=== PATIENT | female | born 1960 | race Two or more races ===

== ENCOUNTER 2024-08-15 09:33 | Inpatient (IN) | payer MEDICAID, OTHER ==
[~2024-08-15] VITALS: Ht 160 cm; Wt 77.3 kg
--- NOTE | 2024-08-15 10:28 | ED.PDOC ---
GI ASSESSMENT HPI Comments 64Y F with PMHx bariatric surgery and hernia repair presents to ED for chief complaint abd pain with nausea and shakiness. Pt had bariatric sleeve surgery 9 months ago at [facility]. Now, pt has noticed a golf-sized mass on the left side of the abdomen and is concerned about having another hernia. Pt drank a hot tea and used hot packs this morning but did not feel relief. Chief Complaint: Abdominal Pain Time Seen by MD: 09:56 Reviewed Notes: Medications, Allergies Allergies: Coded Allergies: NO KNOWN ALLERGIES (Unverified , 08/15/24) Information Source: Patient Mode of Arrival: Ambulatory Timing: Days Duration: Since onset Quality: Sharp Vomitus: Watery Stool: Normal Severity: Moderate Recent: Recent Surgery Recent Hx of: Abdominal Operations Pain Location: LUQ, LLQ Modifying Factors: Nothing Associated sign and symptoms: Nausea, Abdominal Pain, Other Past Medical History PAST MEDICAL HISTORY: DM, HTN, Thyroid Surgical History: , Hernia Repair Surgical History (Other): Bariatric sleeve DISPLAY ARTIST History: No Pertinent DISPLAY ARTIST History Family History Family History: Unknown Social History Smoker: Non-Smoker Alcohol: Denies ETOH Use Drugs: Denies Drug Use Lives In: Home Constitutional: reports: others (shaky); denies: chills, diaphoresis, fatigue, fever, malaise, sweats, weakness EENTM: denies: blurred vision, double vision, ear bleeding, ear discharge, ear drainage, ear pain, ear ringing, eye pain, eye redness, hearing loss, mouth pain, mouth swelling, nasal discharge, nose bleeding, nose congestion, nose pain, photophobia, tearing, throat pain, throat swelling, voice changes, others Respiratory: denies: cough, hemoptysis, orthopnea, SOB at rest, shortness of breath, SOB with excertion, stridor, wheezing, others Cardiovascular: denies: chest pain, dizzy spells, diaphoresis, Dyspnea on exertion, edema, irregular heart beat, left arm pain, lightheadedness, palpitations, PND, syncope, others Gastrointestinal: reports: abdominal pain, nausea; denies: abdomen distended, blood streaked bowels, constipated, diarrhea, dysphagia, difficulty swallowing, hematemesis, melena, poor appetite, poor fluid intake, rectal bleeding, rectal pain, vomiting, others Genitourinary: denies: abnormal vagina bleeding, burning, dyspareunia, dysuria, flank pain, frequency, hematuria, incontinence, pain, , vagina discharge , urgency, others Neurological: denies: dizziness, fainting, headache, left sided numbness, left sided weakness, numbness, paresthesia, pre-existing deficit, right sided numbness, right sided weakness, seizure, speech problems, tingling, tremors, weakness, others Musculoskeletal: denies: back pain, gout, joint pain, joint swelling, muscle pain, muscle stiffness, neck pain, others Integumetry: denies: bruises, change in color, change in hair/nails, dryness, laceration, lesions, lumps, rash, wounds, others Allergic/Immunocompromised: denies: Difficulty Healing, Frequent Infections, Hives, Itching, others Hematologic/Lymphatic: denies: anemia, blood clots, easy bleeding, easy bruising, swollen glands, others Endocrine: denies: excessive hunger, excessive sweating, excessive thirst, excessive urination, flushing, intolerance to cold, intolerance to heat, unexplained weight gain, unexplained weight loss, others Psychiatric: denies: anxiety, bipolar disorder, depression, hopeless, panic di sorder, schizophrenia, sleepless, suicidal, others All Other Systems: Reviewed and Negative Physical Exam General Appearance: Moderate Distress, Normal HEENT: Normal ENT Inspection, Pharynx Normal, TMs Normal Neck: Full Range of Motion, Non-Tender, Normal, Normal Inspection Respiratory: Chest Non-Tender, Lungs Clear, No Accessory Muscle Use, No Respiratory Distress, Normal Breath Sounds Cardiovascular: No Edema, No JVD, No Murmur, No Gallop, Normal Peripheral Pulses, Regular Rate/Rhythm Breast Exam: Deferred Gastrointestinal: No Organomegaly, Non Tender, No Pulsatile Mass, Normal Bowel Sounds, Soft Genitalia: Deferred Pelvic: Deferred Rectal: Deferred Extremities: No calf tenderness, Normal capillary refill, Normal inspection, Normal range of motion, Non-tender, No pedal edema Musculoskeletal : Apperance: Normal Neurologic: Alert, medical operations supervisor II-XII nml as Tested, No Motor Deficits, Normal Affect, Normal Mood, No Sensory Deficits Cerebellar Function: Normal Reflexes: Normal Skin: Dry, Normal Color, Warm Peripheral Pulses: 3+ Radial (R), 3+ Radial (L) Lymphatic: No Adenopathy Was a procedure done? Was a procedure done?: No GI differential Dx Differential Diagnosis: Constipation, Diverticular disease, Esophagitis, Gastritis/PUD, Gastroenteritis, Hernia X-Ray, Labs, Meds, VS Vital Signs Date Time Temp Pulse Resp B/P (MAP) Pulse Ox O2 Delivery O2 Flow Rate FiO2 08/15/24 12:16 93 20 150/80 08/15/24 12:01 75 18 125/63 (83) 98 08/15/24 12:01 75 20 98 Room Air 08/15/24 09:54 98.0 98 20 150/80 (103) 98 Lab Test 08/15/24 10:55 Range/Units White Blood Count 7.7 4.4-10.8 10^3/uL Red Blood Count 4.95 4.0-5.20 10^6/uL Hemoglobin 15.1 12.2-16.2 g/dL Hematocrit 44.7 36.0-46.0 % Mean Corpuscular Volume 90.2 80.0-100.0 fL Mean Corpuscular Hemoglobin 30.6 28.0-32.0 pg Mean Corpuscular Hemoglobin Concent 33.9 32.0-36.0 g/dL Red Cell Distribution Width 14.0 11.8-14.3 % Platelet Count 249 140-450 10^3/uL Mean Platelet Volume 8.3 6.9-10.8 fL Neutrophils (%) (Auto) 75.2 37.0-80.0 % Lymphocytes (%) (Auto) 17.5 10.0-50.0 % Monocytes (%) (Auto) 4.8 0.0-12.0 % Eosinophils (%) (Auto) 1.4 0.0-7.0 % Basophils (%) (Auto) 1.1 0.0-2.0 % Neutrophils # (Auto) 5.8 1.6-8.6 10 ^3/uL Lymphocytes # (Auto) 1.3 0.4-5.4 10 ^3/uL Monocytes # (Auto) 0.4 0-1.3 10 ^3/uL Eosinophils # (Auto) 0.1 0-0.8 10 ^3/uL Basophils # (Auto) 0.1 0-0.2 10 ^3/uL Nucleated Red Blood Cells 0.1 % Sodium Level 142 136-145 mmol/L Potassium Level 4.3 3.5-5.1 mmol/L Chloride Level 107 98-107 mmol/L Carbon Dioxide Level 27 20-31 mmol/L Anion Gap 8 5-15 Blood Urea Nitrogen 13 9-23 mg/dL Creatinine 0.65 0.550-1.02 mg/dL Glomerular Filtration Rate Calc 99 >90 mL/min BUN/Creatinine Ratio 20.0 10.0-20.0 Serum Glucose 116 H 74-106 mg/dL Calcium Level 10.0 8.7-10.4 mg/dL Current Medications Medications (Trade) Dose Ordered Sig/Nicolas Route Start Time Stop Time Status Last Admin Morphine Sulfate 4 mg ONCE ONCE IV 08/15/24 11:30 08/15/24 11:31 DC 08/15/24 12:16 Ondansetron HCl (Zofran) 4 mg ONCE ONCE IV 08/15/24 11:30 08/15/24 11:31 DC 08/15/24 12:15 [place] [id number] Ph: [phone] DIAGNOSTIC IMAGING Diagnostic Imaging Report : [id number] Signed PATIENT: MARIE AGUERO ACCT: [id number] UNIT: [id number] : 1960 LOC: ER ROOM / BED: / AGE / SEX: 64 / F ADM STATUS: REG ER SERVICE 1033 ORDERING PHYSICIAN: JASON PAULINO MD PROCEDURE(s): ABPL - CT AB PEL WO CON-NO ORAL OR IV REASON: sbo ORDER NUMBER(s): [id number], ACCESSION NUMBER(s): [id number] Exam: CT CT AB PEL WO CON-NO ORAL OR IV History: sbo Comparison Study: None available at time of dictation. Technique: Multidetector spiral CT of the abdomen and pelvis was performed from lung bases to pubic symphysis. Imaging was performed without intravenous contrast. Coronal and sagittal multiplanar reformats were obtained from the axial data set by the technologist. Radiation Dose : 1. Abdomen/Pelvis: CTDIvol 11.4 mGy, DLP 651.1 mGy*cm. Findings: Evaluation of vasculature and solid organs is limited due to lack of intravenous contrast use. Lung Bases: Lung bases are clear. Visualized portions of the heart and pericardium are unremarkable. Liver: The liver is normal in size. No focal lesions. Gallbladder and Biliary Tree: The gallbladder is unremarkable No intrahepatic or extrahepatic biliary ductal dilatation. Spleen: Unremarkable Pancreas: The pancreas is grossly unremarkable. Adrenal Glands: Unremarkable Kidneys: Kidneys are unremarkable without calculi or hydronephrosis. There is a right renal cyst. GI tract: Postsurgical changes in the stomach. Focally dilated bowel loop within an umbilical hernia with decompression of the bowel loop exiting the umbilical hernia and slight dilatation of the bowel loops upstream of the hernia. The colon is unremarkable. The appendix is visualized and is normal. Peritoneum/mesentery/retroperitoneum. No evidence of free intraperitoneal air. No ascites. No evidence of suspicious lymphadenopathy. Abdominal Wall: Umbilical hernias described. Vasculature: The visualized abdominal aorta is normal in size and caliber. Evaluation of abdominal and pelvic vessels is limited due to lack of intravenous contrast. Urinary Bladder: Grossly unremarkable for degree of distention. Pelvic Organs: Unremarkable Musculoskeletal: No aggressive focal bony lesions, acute fractures or dislocation. IMPRESSION: 1. Umbilical hernia containing small bowel loops findings which could represent a partial bowel obstruction. ATED BY: JERMAINE ZACARIAS MD DICTATED DATE/TIME: 08/15/24 105 SIGNED BY: JERMAINE ZACARIAS MD SIGNED DATE/TIME: 08/15/24 105 CC: Patient alert. Complaining of abdominal pain. On examination she does have hernia on the left quadrant. Vitals stable. Answering all questions. Abdomen is soft. She does not take any medication. Had gastric sleeve a [facility] early part of the year. Reviewed her history. CT scan of the abdomen reviewed does show hernia with small bowel obstruction. Placed a NG tube. Explained to the patient. Time of 1ST Reevaluation: 10:26 Reevaluation 1ST: Unchanged Patient Education/Counseling: Diagnosis, Treatment Family Education/Counseling: No Family Present Additional Information The following tests were ordered, and results were reviewed by me: CBC, BMP, UA, CT abd/pelvis WO contrast I reviewed and agreed with the following test results read by other providers: C T abd/pelvis WO contrast I discussed treatment and results with medical personnel. Departure 1 Departure Time of Disposition: 10:48 Impression: Primary Impression: Acute abdominal pain Additional Impression: Small bowel obstruction Disposition: ADMITTED INPATIENT Admit to: Med Surg Condition: Guarded Critical Care Note Critical Care Time?: No Stability Stability form required: No Heart Score Heart Score: Heart Score Response (Comments) Value History N/A 0 EKG N/A 0 Age N/A 0 Risk Factors N/A 0 Troponin N/A 0 Total 0 I personally scribed for JASON PAULINO MD ([email or web address]) on 08/15/24 at 10:28. Electronically submitted by Allison Morales ([employer]). I personally scribed for JASON PAULINO MD ([email or web address]) on 08/15/24 at 10:36. Electronically submitted by Allison Morales ([employer]). I personally scribed for JASON PAULINO MD ([email or web address]) on 08/15/24 at 11:24. Electronically submitted by Allison Morales ([employer]). I personally scribed for JASON PAULINO MD ([email or web address]) on 08/15/24 at 14:03. Electronically submitted by Allison Morlaes ([employer]). JASON PAULINO MD Aug 15, 2024 10:28
--- NOTE | 2024-08-15 11:02 | DVH ---
Exam: CT CT AB PEL WO CON-NO ORAL OR IV History: sbo Comparison Study: None available at time of dictation. Technique: Multidetector spiral CT of the abdomen and pelvis was performed from lung bases to pubic s ymphysis. Imaging was performed without intravenous contrast. Coronal and sagittal multiplanar refor mats were obtained from the axial data set by the technologist. Radiation Dose : 1. Abdomen/Pelvis: CTDIvol 11.4 mGy, DLP 651.1 mGy*cm. Findings: Evaluation of vasculature and solid organs is limited due to lack of intravenous contrast use. Lung Bases: Lung bases are clear. Visualized portions of the heart and pericardium are unremarkable. Liver: The liver is normal in size. No focal lesions. Gallbladder and Biliary Tree: The gallbladder is unremarkable No intrahepatic or extrahepatic bilia ry ductal dilatation. Spleen: Unremarkable Pancreas: The pancreas is grossly unremarkable. Adrenal Glands: Unremarkable Kidneys: Kidneys are unremarkable without calculi or hydronephrosis. There is a right renal cyst. GI tract: Postsurgical changes in the stomach. Focally dilated bowel loop within an umbilical hernia with decompression of the bowel loop exiting the umbilical hernia and slight dilatation of the bowel loops upstream of the hernia. The colon is unremarkable. The appendix is visualized and is normal. Peritoneum/mesentery/retroperitoneum. No evidence of free intraperitoneal air. No ascites. No evidenc e of suspicious lymphadenopathy. Abdominal Wall: Umbilical hernias described. Vasculature: The visualized abdominal aorta is normal in size and caliber. Evaluation of abdominal a nd pelvic vessels is limited due to lack of intravenous contrast. Urinary Bladder: Grossly unremarkable for degree of distention. Pelvic Organs: Unremarkable Musculoskeletal: No aggressive focal bony lesions, acute fractures or dislocation. IMPRESSION: 1. Umbilical hernia containing small bowel loops findings which could represent a partial bowel obstr uction.
[2024-08-15 11:13] LABS: Basophils # (auto) 0.1 10 ^3/uL (0-0.2); Basophils % (auto) 1.1 % (0.0-2.0); Eosinophils # (auto) 0.1 10 ^3/uL (0-0.8); Eosinophils % (auto) 1.4 % (0.0-7.0); Hematocrit 44.7 % (36.0-46.0); Hemoglobin 15.1 g/dL (12.2-16.2); Lymphocytes # (auto) 1.3 10 ^3/uL (0.4-5.4); Lymphocytes % (auto) 17.5 % (10.0-50.0); Mean Corpuscular Hemoglobin 30.6 pg (28.0-32.0); Mean Corpuscular Hgb Conc. 33.9 g/dL (32.0-36.0); Mean Corpuscular Volume 90.2 fL (80.0-100.0); Monocytes # (auto) 0.4 10 ^3/uL (0-1.3); Monocytes % (auto) 4.8 % (0.0-12.0); Neutrophils # (auto) 5.8 10 ^3/uL (1.6-8.6); Neutrophils % (auto) 75.2 % (37.0-80.0); Nucleated Red Blood Cells % 0.1 %; Platelet Count (auto) 249 10^3/uL (140-450); Red Blood Cells 4.95 10^6/uL (4.0-5.20); White Blood Cell 7.7 10^3/uL (4.4-10.8)
[2024-08-15 11:15] LABS: Chloride 107 mmol/L (98-107); Potassium 4.3 mmol/L (3.5-5.1); Sodium 142 mmol/L (136-145)
[2024-08-15 11:16] LABS: Anion Gap 8 (5-15); Carbon Dioxide 27 mmol/L (20-31)
[2024-08-15 11:21] LABS: Blood Urea Nitrogen 13 mg/dL (9-23)
[2024-08-15 11:24] LABS: Glucose 116 mg/dL (74-106)
[2024-08-15] MEDS: ONDANSETRON HCL 4 MG/2 ML VIAL IV ONE (12:15)
[2024-08-15] MEDS: MORPHINE SULFATE 4 MG/ML SYR/VIAL IV ONE (12:16)
--- NOTE | 2024-08-15 12:20 | DVHHP2 ---
History of Present Illness Reason for Visit: Abdominal pain History of Present Illness 64-year-old female past medical history bariatric surgery hernia repair hypertension thyroid disease prediabetic surgical history hernia repair bariatric sleeve chief complaint patient states she has been having abdominal pain that appears it started today sudden onset of pain in her left side of her abdomen with a is a hard lump at. Patient states that was a hernia that she had in the past she had likely repair from it prior but she states today the pain was so severe it made her come to the ER further evaluation and it felt like a sharp stabbing pain she also states she had a feeling of nausea but no vomiting no diarrhea there was no black stools no tearing sensation abdomen no shortness with the breath. Patient denies any fever. When evaluating patient's labs and imaging CBC was unremarkable glucose [address] scan of the abdomen pelvis shows some blurry Hugo hernia we will partial small-bowel obstruction. With these findings we will admit patient for further workup and care and ask for General surgery evaluation we will also place NG tube for now Past Medical History See HPI above Past Surgical History See HPI above Family History Reviewed, non-contributory to the management of this case. Past Social History The patient lives at home, denies smoking, alcohol or illicit drugs abuse. Review of Systems Constitutional: No: Fever, Chills, Sweats, Weakness, Malaise, Other Eyes: No: Pain, Vision change, Conjunctivae inflammation, Eyelid inflammation, Other, Redness ENT: No: Ear pain, Ear discharge, Nose pain, Nose discharge, Nose congestion, Mouth pain, Mouth swelling, Throat pain, Throat swelling, Other Respiratory: No: Cough, Dry, Shortness of breath, SOB with excertion, Wheezing, Hemoptysis, Pleuritic Pain, Sputum, Wheezing, Other Cardiovascular: No: Chest Pain, Palpitations, Orthopnea, Paroxysmal Noc. Dyspnea, Edema, Lt Headedness, Other Gastrointestinal: Nausea, Vomiting, Abdominal Pain; No: Diarrhea, Constipation, Melena, Hematochezia, Other Allergies: Coded Allergies: NO KNOWN ALLERGIES (Unverified , 08/15/24) Exam Vital Signs Vital Signs Date Time Temp Pulse Resp B/P (MAP) Pulse Ox O2 Delivery O2 Flow Rate FiO2 08/15/24 12:01 75 18 125/63 (83) 98 08/15/24 12:01 Room Air 08/15/24 09:54 98.0 General Appearance: Alert, Oriented X3, Cooperative, No acute distress HEENT: Atraumatic, PERRLA, EOMI, Mucous membr. moist/pink Respiratory: Clear to auscultation, Normal air movement Cardiovascular: Regular rate, Normal S1, Normal S2, No murmurs Abdominal: Normal bowel sounds, Soft, No hepatospenomegaly, No masses, Other (Guarding and rebound tenderness left mid quadrant area with bulging under the skin compartments soft) Extremities: No clubbing, No cyanosis, No edema, Normal pulses Skin: No breakdown, No significant lesion Neuro: Normal speech, Strength at 5/5 X4 ext, Normal tone, Sensation intact, Cranial nerves 3-12 NL Psych/Mental Status: Mental status NL, Mood NL Labs/Xrays Labs Test 08/15/24 10:55 Range/Units White Blood Count 7.7 4.4-10.8 10^3/uL Red Blood Count 4.95 4.0-5.20 10^6/uL Hemoglobin 15.1 12.2-16.2 g/dL Hematocrit 44.7 36.0-46.0 % Mean Corpuscular Volume 90.2 80.0-100.0 fL Mean Corpuscular Hemoglobin 30.6 28.0-32.0 pg Mean Corpuscular Hemoglobin Concent 33.9 32.0-36.0 g/dL Red Cell Distribution Width 14.0 11.8-14.3 % Platelet Count 249 140-450 10^3/uL Mean Platelet Volume 8.3 6.9-10.8 fL Neutrophils (%) (Auto) 75.2 37.0-80.0 % Lymphocytes (%) (Auto) 17.5 10.0-50.0 % Monocytes (%) (Auto) 4.8 0.0-12.0 % Eosinophils (%) (Auto) 1.4 0.0-7.0 % Basophils (%) (Auto) 1.1 0.0-2.0 % Neutrophils # (Auto) 5.8 1.6-8.6 10 ^3/uL Lymphocytes # (Auto) 1.3 0.4-5.4 10 ^3/uL Monocytes # (Auto) 0.4 0-1.3 10 ^3/uL Eosinophils # (Auto) 0.1 0-0.8 10 ^3/uL Basophils # (Auto) 0.1 0-0.2 10 ^3/uL Nucleated Red Blood Cells 0.1 % Sodium Level 142 136-145 mmol/L Potassium Level 4.3 3.5-5.1 mmol/L Chloride Level 107 98-107 mmol/L Carbon Dioxide Level 27 20-31 mmol/L Anion Gap 8 5-15 Blood Urea Nitrogen 13 9-23 mg/dL Creatinine 0.65 0.550-1.02 mg/dL Glomerular Filtration Rate Calc 99 >90 mL/min BUN/Creatinine Ratio 20.0 10.0-20.0 Serum Glucose 116 H 74-106 mg/dL Calcium Level 10.0 8.7-10.4 mg/dL Assessment/Plan Assessment/Plan acute umbilical hernia with sbo obstruction found on ct scan N.p.o. for now ordered zosyn ordered IV fluids ordered General surgery consult follow-up recs ordered Protonix ordered Type and screen, ekg ordered Morphine and Zofran small bowel series ordered from er fu results acute leukocytosis likely in setting of sbo and acute dehydration ordered zosyn consider blood cultures if with fever acute dehydration ordered ivf acute on chronic paty ordered urine sodium and crea to check fena monitor for uptrend avoid nephrotoxic drugs ordered ivf chronic problems dm htn hypothyroidism chronic bariatric sleeve fen/ppx npo ivf ng tube protonix scd lovenox plan admit to medicine general surgery referral Plan discussed with: Patient Date of Service: Aug 15, 2024 Billing Provider: LINDA ERVIN DNP Common Visit Codes: [id number] INP/OBS CARE (HIGH) LINDA ERVIN DNP Aug 15, 2024 12:20
[2024-08-15] MEDS ORDERED: DOCUSATE SOD 100 MG CAP PO PRN (13:15)
[2024-08-15] MEDS ORDERED: NITROGLYCERIN 0.4 MG SL TAB SL PRN (13:15)
[2024-08-15] MEDS: PANTOPRAZOLE 40 MG/10 ML VIAL INJ IV ONE (14:48)
[2024-08-15] MEDS: ONDANSETRON HCL 4 MG/2 ML VIAL IV PRN (14:48)
[2024-08-15] MEDS: PIPERACILLIN-TAZOB 3.375GM 100 ML IV ONE (14:49)
[2024-08-15] MEDS: GASTROGRAFIN 120 ML SOL ONE (14:49)
[2024-08-15 15:30] VITALS: BP 157/88; PULSE 90; RESP 18; TEMP 98.4; O2SAT 97
[2024-08-15 15:34] VITALS: BP 157/88; PULSE 89; RESP 18; TEMP 98.4; O2SAT 97
[2024-08-15] MEDS ORDERED: LEVO75TA6 PO (15:54)
[2024-08-15] MEDS ORDERED: DULO1CAP5 PO (15:54)
[2024-08-15] MEDS ORDERED: HYDR25TA5 PO (15:55)
[2024-08-15] MEDS ORDERED: HYDR200T36 PO (15:55)
[2024-08-15] MEDS ORDERED: LORA-622 PO (15:56)
[2024-08-15] MEDS: SODIUM CHLORIDE 0.9% 1,000 ML IV SCH (16:10)
[2024-08-15 17:03] VITALS: BP 151/88; PULSE 62; RESP 18; TEMP 98.4; O2SAT 94
[2024-08-15] MEDS: MORPHINE SULFATE INJ 2 MG/ml SYRG IV PRN (17:03)
--- NOTE | 2024-08-15 18:05 | DVH ---
Procedure: XY SMALL BOWEL SERIES-W GASTROGRA Reason for study/Clinical History: possible small bowel obstruction Comparison Study: CT abdomen and pelvis from same day Technique: Single contrast small bowel series performed. FINDINGS/IMPRESSION: Initial punch operator view of the abdomen and pelvis appears demonstrates throughout nondilated small and lar ge bowel. Administration of contrast demonstrates opacification of the stomach and small bowel. There is no def initive contrast in the colon at 4 hours concerning for small bowel obstruction.
[2024-08-15 20:00] VITALS: PULSE 82; RESP 18; O2SAT 98
[2024-08-15 20:31] LABS: Urine Bacteria None Seen /hpf (None Seen); Urine WBC None Seen /hpf (0 - 5)
[2024-08-15 20:46] LABS: Urine Blood Negative /uL (Negative); Urine Clarity Ex.Turbid (Clear); Urine Color Light-Yellow (Yellow); Urine Protein, UAD TRACE (Negative); Urine Specific Gravity 1.019 (1.001-1.035); Urine Urobilinogen Normal (Negative)
[2024-08-15 21:00] VITALS: BP 162/99; PULSE 82; RESP 18; TEMP 98.2; O2SAT 98
[2024-08-15] MEDS: PIPERACILLIN-TAZOB 3.375GM 100 ML IV SCH (22:38)
[2024-08-15] MEDS: PROCHLORPERAZINE EDISYLATE 5 MG/ML 2ML VIAL IV ONE (22:45)
[2024-08-16] VITALS (8 sets, daily range): BP systolic 98–146; BP diastolic 52–90; PULSE 85–97; RESP 17–20; TEMP 97.7–99.2; O2SAT 93–98
[2024-08-16 06:30] LABS: Anion Gap 12 (5-15); Carbon Dioxide 27 mmol/L (20-31); Chloride 107 mmol/L (98-107)
[2024-08-16 06:31] LABS: Bilirubin, Total 0.6 mg/dL (0.2-1.0); Total Protein 7.5 g/dL (5.7-8.2)
[2024-08-16 06:40] LABS: BUN/Creatinine Ratio 22.8 (10.0-20.0)
[2024-08-16 06:44] LABS: Alanine Aminotransferase 28 U/L (7-40); Albumin 4.9 g/dL (3.2-4.8); Alkaline Phosphatase 117 U/L (46-116); Aspartate Aminotransferase 45 U/L (13-40); Blood Urea Nitrogen 18 mg/dL (9-23); Calcium 10.4 mg/dL (8.7-10.4); Glucose 139 mg/dL (74-106); Potassium 4.7 mmol/L (3.5-5.1); Sodium 146 mmol/L (136-145)
--- NOTE | 2024-08-16 07:38 | DVHINCON2 ---
Date of service: Aug 16, 2024 Family History: Patient reports no known family medical history. Allergies: Coded Allergies: NO KNOWN ALLERGIES (Unverified , 08/15/24) Home Meds Reported Medications Loratadine (Claritin) 10 Mg Tab, 1 TAB PO DAILY, #30 TAB 5 Refills 08/15/24 Hctz (Hydrochlorothiazide) 25 Mg Tab, 1 TAB PO DAILY 08/15/24 Hydroxychloroquine Sulfate (Hydroxychloroquine Sulfat) 200 Mg Tab, 1 TAB PO DAILY 08/15/24 Levothyroxine Sodium (Levothyroxine Sodium) 75 Mcg Tab, 1 TAB PO DAILY 08/15/24 Duloxetine HCl (Duloxetine HCl) 30 Mg Cap, 1 CAP PO DAILY 08/15/24 Current Medications Current Medications Medications (Trade) Dose Ordered Sig/Nicolas Route PRN Reason Start Time Stop Time Status Last Admin Sodium Chloride 1,000 ml @ 120 mls/hr Q8H20M IV 08/15/24 13:15 08/16/24 05:33 Ondansetron HCl (Zofran) 4 mg Q4HP PRN IV NAUSEA / VOMITING 08/15/24 13:15 08/16/24 05:43 Docusate Sodium (Colace Capsule) 100 mg BIDPRN PRN PO FOR CONSTIPATION 08/15/24 13:15 Morphine Sulfate 2 mg Q4HPRN PRN IV SEVERE PAIN (7-10 PAIN SCALE) 08/15/24 13:15 08/16/24 05:45 Nitroglycerin (Ntrostat Sublingual) 0.4 mg Q5MINP PRN SL FOR CHEST PAIN 08/15/24 13:15 Piperacillin Sod/ Tazobactam Sod 100 ml @ 25 mls/hr Q8H IV 08/15/24 22:00 08/16/24 05:33 Pantoprazole Sodium (Protonix) 40 mg DAILY IV 08/16/24 10:00 Vital Signs Vital Signs Date Time Temp Pulse Resp B/P (MAP) Pulse Ox O2 Delivery O2 Flow Rate FiO2 08/16/24 06:15 90 18 130/83 08/16/24 05:00 98.2 96 98.2 08/15/24 20:00 Room Air* 0 21 Labs/Diagnostic Data Labs Test 08/16/24 05:27 08/15/24 20:25 12/25/24 10:55 Range/Units Sodium Level 146 H 136-145 mmol/L Potassium Level 4.7 3.5-5.1 mmol/L Chloride Level 107 98-107 mmol/L Carbon Dioxide Level 27 20-31 mmol/L Anion Gap 12 5-15 Blood Urea Nitrogen 18 9-23 mg/dL Creatinine 0.79 0.550-1.02 mg/dL Glomerular Filtration Rate Calc 85 >90 mL/min BUN/Creatinine Ratio 22.8 H 10.0-20.0 Serum Glucose 139 H 74-106 mg/dL Calcium Level 10.4 8.7-10.4 mg/dL Total Bilirubin 0.6 0.2-1.0 mg/dL Aspartate Amino Transferase (AST) 45 H 13-40 U/L Alanine Aminotransferase (ALT) 28 7-40 U/L Alkaline Phosphatase 117 H 46-116 U/L Total Protein 7.5 5.7-8.2 g/dL Albumin 4.9 H 3.2-4.8 g/dL Urine Color Light-yellow Yellow Urine Clarity Ex.turbid Clear Urine pH 7.0 5.0-9.0 Urine Specific [place] 1.019 1.001-1.035 Urine Protein Trace H Negative Urine Ketones 2+ H Negative Urine Blood Negative Negative /uL Urine Nitrite Negative Negative Urine Bilirubin Negative Negative Urine Urobilinogen Normal Negative mg/dL Urine Leukocyte Esterase Negative Negative /uL Urine RBC 1 0 - 4 /hpf Urine WBC None seen 0 - 5 /hpf Urine Squamous Epithelial Cells None seen <5 /hpf Urine Bacteria None seen None Seen /hpf Urine Glucose Normal Normal mg/dL Eosinophils (%) (Auto) 1.4 0.0-7.0 % Eosinophils # (Auto) 0.1 0-0.8 10 ^3/uL Basophils # (Auto) 0.1 0-0.2 10 ^3/uL Nucleated Red Blood Cells 0.1 % Assessment 64 YEAR OLD FEMALE HAD A GASTRIC SLEEVE OBESITY OPERATION DONE IN OCTOBER OF THIS YEAR, NOW HAS AN INCARCERATED INCISIONAL HERNIA WITH SBO. REPAIR, RISKS AND COMPLICATIONS EXPLAINED IN DETAIL Plan discussed with: Patient MIKE KEN MD Aug 16, 2024 07:38
[2024-08-16] MEDS: PANTOPRAZOLE 40 MG/10 ML VIAL INJ IV SCH (10:00)
[2024-08-16] MEDS ORDERED: MEPERIDINE HCL (25 MG/ML) 1ML VIAL ONE (10:14)
[2024-08-16] MEDS ORDERED: MIDAZOLAM HCL 2MG/2ML 2ml VIAL (1mg/ml) ONE (10:14)
[2024-08-16] MEDS ORDERED: fentaNYL CITRATE 100 MCG/2 ML VL ONE (10:14)
--- NOTE | 2024-08-16 10:14 | DVH ---
CHEST RADIOGRAPH Indication: PRE-OP EVAL Technique: Single frontal view of the chest was obtained COMPARISON: None FINDINGS: Lines and Tubes: None Lungs: Clear Pleura: No effusion. No pneumothorax. Cardiomediastinal contours: Unremarkable Bones: Unremarkable IMPRESSION: No acute disease.
[2024-08-16] MEDS ORDERED: ETOMIDATE (2MG/ML) 20ML VIAL IV ONE (11:13)
[2024-08-16] MEDS ORDERED: DexAMETHasone SOD PHOS 10MG/1ML VIAL INJ ONE (11:13)
[2024-08-16] MEDS ORDERED: SUGAMMADEX 200mg/2ml Vial (100MG/ML) IV ONE (11:14)
[2024-08-16] MEDS ORDERED: hydrALAZINE HCL 20 MG/ML VL IV PRN (11:15)
[2024-08-16] MEDS ORDERED: D5W/SOD CHL 0.45%/KCL 20MEQ 1,000 ML IV SCH (11:15)
[2024-08-16] MEDS ORDERED: HYDROmorphone HCL 2 MG/ML VL/or syr IV PRN (11:15)
[2024-08-16] MEDS ORDERED: ePHEDrine SULFATE 50 MG/ML AMP IV PRN (11:15)
[2024-08-16] MEDS ORDERED: ONDANSETRON HCL 4 MG/2 ML VIAL IV ONE (11:15)
[2024-08-16] MEDS ORDERED: MIDAZOLAM HCL 2MG/2ML 2ml VIAL (1mg/ml) IV PRN (11:15)
[2024-08-16] MEDS ORDERED: MORPHINE SULFATE 4 MG/ML SYR/VIAL IV PRN (11:15)
--- NOTE | 2024-08-16 11:46 | DVHOP ---
DATE OF SURGERY: 08/16/2024 PREOPERATIVE DIAGNOSIS: Incarcerated abdominal wall hernia with small-bowel obstruction. SURGEON: Tylor Stephen MD. LOCKSTITCH BACK MAKER: Chaka Rizo. ANESTHESIA: General endotracheal. ANESTHESIOLOGIST: Dr. Catherine. PROCEDURES: Release of small bowel obstruction, repair of incarcerated abdominal wall hernia. DESCRIPTION OF PROCEDURE: Under general anesthesia, with the patient's skin prepped and draped, an incision was made over the visible palpable bulge in the abdomen. Abundant adipose tissue was divided with electrocautery. The hernia sac was opened, contained hemorrhagic fluid and a loop of somewhat ischemic and purplish bowel, which appeared viable, as the hernia opening was enlarged, the bowel color changed to more viable color and the patient's loop of bowel was returned into the peritoneal cavity. The fascial defect was then closed. No mesh was used due to the fact that the patient had ischemic-appearing bowel in the incarcerated hernia for fear of infection of the mesh. The wound was closed using #1 double-stranded Prolene sutures and interspersed interrupted Ethibonds. Subcutaneous tissue and skin approximated using Monocryl sutures, Dermabond glue and Steri-Strips. The patient remained stable throughout the procedure, left the operating room following an accurate needle and sponge count. Her daughter, Lashonda, was thoroughly informed by phone. Tylor Stephen MD PF/ARV TID: [id number] RECEIPT: [id number]
--- NOTE | 2024-08-16 12:51 | DVHPN2 ---
Changes from previous H/P or p: No Changes Eyes: No Pain, No Vision change, No Conjunctivae inflammation, No Eyelid inflammation, No Other, No Redness ENT: No Ear pain, No Ear discharge, No Nose pain, No Nose discharge, No Nose congestion, No Mouth pain, No Mouth swelling, No Throat pain, No Throat swelling, No Other Cardiovascular: No Chest Pain, No Palpitations, No Orthopnea, No Paroxysmal Noc. Dyspnea, No Edema, No Lt Headedness, No Other Respiratory: No Cough, No Dry, No Shortness of breath, No SOB with excertion, No Wheezing, No Hemoptysis, No Pleuritic Pain, No Sputum, No Other Gastrointestinal: Nausea, Vomiting, Abdominal Pain; No Diarrhea, No Constipation, No Melena, No Hematochezia, No Other Objective Vitals Vital Signs Date Time Temp Pulse Resp B/P (MAP) Pulse Ox O2 Delivery O2 Flow Rate FiO2 08/16/24 09:00 98.1 97 20 115/64 (81) 93 98.1 08/15/24 20:00 Room Air* 0 21 Intake/Output Intake and Output 08/16/24 07:00 Intake Total 1100 ml Output Total 200 ml Balance 900 ml Intake Oral 0 ml IV Total 1100 ml Output Urine Total 200 ml # Voids 1 Medications Current Medications Medications Dose Ordered Sig/Nicolas Route Start Time Stop Time Status Last Admin Dose Admin Sodium Chloride 1,000 ml @ 120 mls/hr Q8H20M IV 08/15/24 13:15 08/16/24 05:33 120 MLS/HR Ondansetron HCl 4 mg Q4HP PRN IV 08/15/24 13:15 08/16/24 10:23 4 MG Docusate Sodium 100 mg BIDPRN PRN PO 08/15/24 13:15 Morphine Sulfate 2 mg Q4HPRN PRN IV 08/15/24 13:15 08/16/24 05:45 2 MG Nitroglycerin 0.4 mg Q5MINP PRN SL 08/15/24 13:15 Piperacillin Sod/ Tazobactam Sod 100 ml @ 25 mls/hr Q8H IV 08/15/24 22:00 08/16/24 05:33 25 MLS/HR Pantoprazole Sodium 40 mg DAILY IV 08/16/24 10:00 Potassium Chloride/Dextrose/ Sod Cl 1,000 ml @ 120 mls/hr Q8H20M IV 08/16/24 11:15 UNV Metronidazole 100 ml @ 100 mls/hr Q8HR IV 08/16/24 14:00 Laboratory Results Laboratory Tests 08/16/24 05:27 Chemistry Test 08/16/24 05:27 Albumin 4.9 g/dL (3.2-4.8) H Calcium Level 10.4 mg/dL (8.7-10.4) Total Protein 7.5 g/dL (5.7-8.2) Coagulation Test 08/16/24 08:00 Prothrombin Time Pending Prothrombin Time INR Pending Activated Partial Thromboplast Time Pending LFT Test 08/16/24 05:27 Alanine Aminotransferase (ALT) 28 U/L (7-40) Alkaline Phosphatase 117 U/L (46-116) H Aspartate Amino Transferase (AST) 45 U/L (13-40) H Total Bilirubin 0.6 mg/dL (0.2-1.0) Urinalysis Test 08/15/24 20:25 Urine Color Light-yellow (Yellow) Urine Clarity Ex.turbid (Clear) Urine pH 7.0 (5.0-9.0) Urine Specific [place] 1.019 (1.001-1.035) Urine Protein Trace (Negative) H Urine Ketones 2+ (Negative) H Urine Blood Negative /uL (Negative) Urine Nitrite Negative (Negative) Urine Bilirubin Negative (Negative) Urine Urobilinogen Normal mg/dL (Negative) Urine Leukocyte Esterase Negative /uL (Negative) Urine RBC 1 /hpf (0 - 4) Urine WBC None seen /hpf (0 - 5) Urine Squamous Epithelial Cells None seen /hpf (<5) Urine Bacteria None seen /hpf (None Seen) Urine Glucose Normal mg/dL (Normal) Labs and/or images reviewed: Labs reviewed by me, Image(s) reviewed by me Assessment/Plan Assessment/Plan Acute abdominal pain Release of small bowel obstruction, repair of incarcerated abdominal wall hernia surgeon Dr. Stephen on 08-16-24 Sepsis Secondary to small-bowel obstruction : Zosyn Flagyl Diabetes: Insulin sliding scale Hypertension Hypothyroid History of bariatric sleeve Time Spent 35 minutes Full code Advanced care planning time 20 mts Plan discussed with: Patient Date of Service: Aug 16, 2024 Billing Provider: DOLORES LANE MD Common Visit Codes: [id number] INP/OBS CARE(HIGH) Secondary Visit Codes: [id number] CARE PLAN [address] MD Aug 16, 2024 12:51
[2024-08-16] MEDS: metroNIDAZOLE 500MG/100ML 100 ML IV SCH (13:04)
[2024-08-16] MEDS: LACTATED RINGER'S 1,000 ML IV SCH (16:27)
[2024-08-16 17:54] LABS: Basophils # (auto) 0 10 ^3/uL (0-0.2); Basophils % (auto) 0.2 % (0.0-2.0); Eosinophils # (auto) 0 10 ^3/uL (0-0.8); Hematocrit 45.9 % (36.0-46.0); Hemoglobin 15.3 g/dL (12.2-16.2); Lymphocytes # (auto) 0.8 10 ^3/uL (0.4-5.4); Mean Corpuscular Hemoglobin 30.1 pg (28.0-32.0); Mean Corpuscular Hgb Conc. 33.4 g/dL (32.0-36.0); Mean Corpuscular Volume 90.3 fL (80.0-100.0); Monocytes # (auto) 0.3 10 ^3/uL (0-1.3); Monocytes % (auto) 1.8 % (0.0-12.0); Neutrophils # (auto) 15.3 10 ^3/uL (1.6-8.6); Platelet Count (auto) 259 10^3/uL (140-450); Red Blood Cells 5.09 10^6/uL (4.0-5.20); Red Cell Distribution Width 14.2 % (11.8-14.3); White Blood Cell 16.5 10^3/uL (4.4-10.8)
[2024-08-16 18:08] LABS: INR 1.19 (0.9-1.15); Prothrombin Time 12.5 sec (9.3-11.8)
[2024-08-17 01:00] VITALS: BP 109/55; PULSE 82; RESP 19; TEMP 98.3; O2SAT 95
[2024-08-17 05:00] VITALS: BP 103/57; PULSE 71; RESP 19; TEMP 98.2; O2SAT 98
[2024-08-17 07:02] LABS: Basophils # (auto) 0 10 ^3/uL (0-0.2); Basophils % (auto) 0.3 % (0.0-2.0); Eosinophils # (auto) 0 10 ^3/uL (0-0.8); Eosinophils % (auto) 0.2 % (0.0-7.0); Hematocrit 39.2 % (36.0-46.0); Hemoglobin 13.1 g/dL (12.2-16.2); Lymphocytes # (auto) 2.2 10 ^3/uL (0.4-5.4); Lymphocytes % (auto) 16.2 % (10.0-50.0); Mean Corpuscular Hemoglobin 30.3 pg (28.0-32.0); Mean Corpuscular Hgb Conc. 33.5 g/dL (32.0-36.0); Mean Corpuscular Volume 90.4 fL (80.0-100.0); Monocytes # (auto) 1.2 10 ^3/uL (0-1.3); Monocytes % (auto) 8.7 % (0.0-12.0); Neutrophils # (auto) 10.3 10 ^3/uL (1.6-8.6); Neutrophils % (auto) 74.6 % (37.0-80.0); Platelet Count (auto) 205 10^3/uL (140-450); Red Blood Cells 4.34 10^6/uL (4.0-5.20); Red Cell Distribution Width 13.9 % (11.8-14.3); White Blood Cell 13.9 10^3/uL (4.4-10.8)
[2024-08-17 09:00] VITALS: BP 105/53; PULSE 71; RESP 17; TEMP 98.2; O2SAT 96
--- NOTE | 2024-08-17 10:57 | DVHPN2 ---
Reviewed: Care Plan, H&P, Labs, Medications, Previous Orders, Radiology Changes from previous H/P or p: No Changes Eyes: No Pain, No Vision change, No Conjunctivae inflammation, No Eyelid inflammation, No Other, No Redness ENT: No Ear pain, No Ear discharge, No Nose pain, No Nose discharge, No Nose congestion, No Mouth pain, No Mouth swelling, No Throat pain, No Throat swelling, No Other Cardiovascular: No Chest Pain, No Palpitations, No Orthopnea, No Paroxysmal Noc. Dyspnea, No Edema, No Lt Headedness, No Other Respiratory: No Cough, No Dry, No Shortness of breath, No SOB with excertion, No Wheezing, No Hemoptysis, No Pleuritic Pain, No Sputum, No Other Gastrointestinal: Nausea, Vomiting, Abdominal Pain; No Diarrhea, No Constipation, No Melena, No Hematochezia, No Other Objective Vitals Vital Signs Date Time Temp Pulse Resp B/P (MAP) Pulse Ox O2 Delivery O2 Flow Rate FiO2 08/17/24 09:00 98.2 71 17 105/53 (70) 96 98.2 08/16/24 20:00 Nasal Cannula* 2 28 Intake/Output Intake and Output 08/17/24 07:00 Intake Total 2400 ml Output Total 900 ml Balance 1500 ml Intake Oral 500 ml IV Total 1900 ml Gastric Drainage Total 900 ml # Voids 3 Medications Current Medications Medications Dose Ordered Sig/Nicolas Route Start Time Stop Time Status Last Admin Dose Admin Sodium Chloride 1,000 ml @ 120 mls/hr Q8H20M IV 08/15/24 13:15 08/16/24 05:33 120 MLS/HR Ondansetron HCl 4 mg Q4HP PRN IV 08/15/24 13:15 08/17/24 04:17 4 MG Docusate Sodium 100 mg BIDPRN PRN PO 08/15/24 13:15 Morphine Sulfate 2 mg Q4HPRN PRN IV 08/15/24 13:15 08/16/24 05:45 2 MG Nitroglycerin 0.4 mg Q5MINP PRN SL 08/15/24 13:15 Piperacillin Sod/ Tazobactam Sod 100 ml @ 25 mls/hr Q8H IV 08/15/24 22:00 08/17/24 06:33 25 MLS/HR Pantoprazole Sodium 40 mg DAILY IV 08/16/24 10:00 08/17/24 10:22 40 MG Potassium Chloride/Dextrose/ Sod Cl 1,000 ml @ 120 mls/hr Q8H20M IV 08/16/24 11:15 Hold Metronidazole 100 ml @ 100 mls/hr Q8HR IV 08/16/24 14:00 08/17/24 05:34 100 MLS/HR Lactated Ringer's 1,000 ml @ 125 mls/hr Q8H IV 08/16/24 13:00 08/17/24 05:34 125 MLS/HR Laboratory Results Laboratory Tests 08/16/24 05:27 08/17/24 06:40 Coagulation Test 08/16/24 17:26 Prothrombin Time 12.5 sec (9.3-11.8) H Prothrombin Time INR 1.19 (0.9-1.15) H Activated Partial Thromboplast Time 27.0 SEC (24.5-34.5) Urinalysis Test 08/15/24 20:25 Urine Color Light-yellow (Yellow) Urine Clarity Ex.turbid (Clear) Urine pH 7.0 (5.0-9.0) Urine Specific [place] 1.019 (1.001-1.035) Urine Protein Trace (Negative) H Urine Ketones 2+ (Negative) H Urine Blood Negative /uL (Negative) Urine Nitrite Negative (Negative) Urine Bilirubin Negative (Negative) Urine Urobilinogen Normal mg/dL (Negative) Urine Leukocyte Esterase Negative /uL (Negative) Urine RBC 1 /hpf (0 - 4) Urine WBC None seen /hpf (0 - 5) Urine Squamous Epithelial Cells None seen /hpf (<5) Urine Bacteria None seen /hpf (None Seen) Urine Glucose Normal mg/dL (Normal) Labs and/or images reviewed: Labs reviewed by me, Image(s) reviewed by me Assessment/Plan Assessment/Plan Acute abdominal pain Release of small bowel obstruction, repair of incarcerated abdominal wall hernia by surgeon Dr. Stephen on 08-16-24 Sepsis Secondary to small-bowel obstruction : Zosyn Flagyl Diabetes: Insulin sliding scale Hypertension Hypothyroid History of bariatric sleeve Time Spent 35 minutes Full code NG tube still putting out lot of bile colored fluid; patient insisting to have the NG tube removed, advised ADA Yost to call Dr. Stephen. Plan discussed with: Patient My Orders Orders - DOLORES LANE MD Procedure Category Date Status Time Lactated Ringer's PHA 08/16/24 In Process 13:00 Date of Service: Aug 17, 2024 Billing Provider: DOLORES LANE MD Common Visit Codes: [id number] INP/OBS CARE(HIGH) DOLORES LANE MD Aug 17, 2024 10:57
[2024-08-17 12:40] VITALS: BP 118/55; PULSE 80; RESP 17; TEMP 97.8; O2SAT 90
--- NOTE | 2024-08-17 12:48 | DVHPN2 ---
Progress Note Date Seen: Aug 17, 2024 Medical Necessity Reason Pt with a Central, PICC or Fol: No Objective vital signs Vital Sign Date Time Temp Pulse Resp B/P (MAP) Pulse Ox O2 Delivery O2 Flow Rate FiO2 08/17/24 12:40 97.8 80 17 118/55 (76) 90 97.8 08/16/24 20:00 Nasal Cannula* 2 28 Total Intake and Output 08/16/24 08/16/24 08/17/24 15:00 23:00 07:00 Intake Total 100 ml 1000 ml 1300 ml Output Total 900 ml Balance 100 ml 1000 ml 400 ml medications Current Medications Medications Dose Ordered Sig/Nicolas Route Start Time Stop Time Status Last Admin Dose Admin Sodium Chloride 1,000 ml @ 120 mls/hr Q8H20M IV 08/15/24 13:15 08/16/24 05:33 120 MLS/HR Ondansetron HCl 4 mg Q4HP PRN IV 08/15/24 13:15 08/17/24 04:17 4 MG Docusate Sodium 100 mg BIDPRN PRN PO 08/15/24 13:15 Morphine Sulfate 2 mg Q4HPRN PRN IV 08/15/24 13:15 08/16/24 05:45 2 MG Nitroglycerin 0.4 mg Q5MINP PRN SL 08/15/24 13:15 Piperacillin Sod/ Tazobactam Sod 100 ml @ 25 mls/hr Q8H IV 08/15/24 22:00 08/17/24 06:33 25 MLS/HR Pantoprazole Sodium 40 mg DAILY IV 08/16/24 10:00 08/17/24 10:22 40 MG Potassium Chloride/Dextrose/ Sod Cl 1,000 ml @ 120 mls/hr Q8H20M IV 08/16/24 11:15 Hold Metronidazole 100 ml @ 100 mls/hr Q8HR IV 08/16/24 14:00 08/17/24 05:34 100 MLS/HR Lactated Ringer's 1,000 ml @ 125 mls/hr Q8H IV 08/16/24 13:00 08/17/24 05:34 125 MLS/HR laboratory and microbiology Laboratory Tests 08/17/24 06:40 08/16/24 05:27 Test 08/16/24 05:27 Range/Units Serum Glucose 139 H 74-106 mg/dL Problem List/Assessment/Plan Problem List/Assessment/Plan 08/17/24 doing well, no nausea, abdomen appropriately tender, I dc'd her NGT she can have po intake she is cleared for DC Plan discussed with: Patient, Daughter MIKE KEN MD Aug 17, 2024 12:48
--- NOTE | 2024-08-17 15:30 | MEDREC ---
[facility] Intervention Section I [facility] Intervention: Duplication of therapy (PLEASE CONSIDER DE-ESCALATING ANTIBIOTIC DUE TO DUPLICATION BETWEEN ZOSYN AND FLAGYL) LAUREN RADFORD Aug 17, 2024 15:30
[2024-08-17 16:37] VITALS: BP 101/54; PULSE 81; RESP 17; TEMP 98.9; O2SAT 94
[2024-08-17 21:00] VITALS: BP 102/51; PULSE 84; RESP 17; TEMP 98.3; O2SAT 97
[2024-08-18 01:00] VITALS: BP 102/52; PULSE 73; RESP 17; TEMP 98.3; O2SAT 93
[2024-08-18 05:00] VITALS: BP 103/54; PULSE 68; RESP 17; TEMP 89.6; O2SAT 91
[2024-08-18 08:59] VITALS: BP 105/64; PULSE 77; RESP 17; TEMP 98.4; O2SAT 95
--- NOTE | 2024-08-18 11:06 | DVHPN2 ---
Reviewed: Care Plan, H&P, Labs, Medications, Previous Orders, Radiology Changes from previous H/P or p: No Changes Eyes: No Pain, No Vision change, No Conjunctivae inflammation, No Eyelid inflammation, No Other, No Redness ENT: No Ear pain, No Ear discharge, No Nose pain, No Nose discharge, No Nose congestion, No Mouth pain, No Mouth swelling, No Throat pain, No Throat swelling, No Other Cardiovascular: No Chest Pain, No Palpitations, No Orthopnea, No Paroxysmal Noc. Dyspnea, No Edema, No Lt Headedness, No Other Respiratory: No Cough, No Dry, No Shortness of breath, No SOB with excertion, No Wheezing, No Hemoptysis, No Pleuritic Pain, No Sputum, No Other Gastrointestinal: Nausea, Vomiting, Abdominal Pain; No Diarrhea, No Constipation, No Melena, No Hematochezia, No Other Objective Vitals Vital Signs Date Time Temp Pulse Resp B/P (MAP) Pulse Ox O2 Delivery O2 Flow Rate FiO2 08/18/24 08:59 98.4 77 17 105/64 (78) 95 98.4 08/17/24 20:00 Room Air* 0 21 Intake/Output Intake and Output 08/18/24 07:00 Intake Total 2218 ml Output Total 1 ml Balance 2217 ml Intake Oral 618 ml IV Total 1600 ml Stool Total 1 ml # Voids 1 Medications Current Medications Medications Dose Ordered Sig/Nicolas Route Start Time Stop Time Status Last Admin Dose Admin Sodium Chloride 1,000 ml @ 120 mls/hr Q8H20M IV 08/15/24 13:15 08/18/24 07:55 120 MLS/HR Ondansetron HCl 4 mg Q4HP PRN IV 08/15/24 13:15 08/17/24 04:17 4 MG Docusate Sodium 100 mg BIDPRN PRN PO 08/15/24 13:15 Morphine Sulfate 2 mg Q4HPRN PRN IV 08/15/24 13:15 08/16/24 05:45 2 MG Nitroglycerin 0.4 mg Q5MINP PRN SL 08/15/24 13:15 Piperacillin Sod/ Tazobactam Sod 100 ml @ 25 mls/hr Q8H IV 08/15/24 22:00 08/18/24 06:40 25 MLS/HR Pantoprazole Sodium 40 mg DAILY IV 08/16/24 10:00 08/18/24 10:55 40 MG Potassium Chloride/Dextrose/ Sod Cl 1,000 ml @ 120 mls/hr Q8H20M IV 08/16/24 11:15 Hold Metronidazole 100 ml @ 100 mls/hr Q8HR IV 08/16/24 14:00 08/18/24 05:37 100 MLS/HR Lactated Ringer's 1,000 ml @ 125 mls/hr Q8H IV 08/16/24 13:00 08/18/24 03:13 125 MLS/HR Laboratory Results Laboratory Tests 08/16/24 05:27 08/17/24 06:40 Urinalysis Test 08/15/24 20:25 Urine Color Light-yellow (Yellow) Urine Clarity Ex.turbid (Clear) Urine pH 7.0 (5.0-9.0) Urine Specific [place] 1.019 (1.001-1.035) Urine Protein Trace (Negative) H Urine Ketones 2+ (Negative) H Urine Blood Negative /uL (Negative) Urine Nitrite Negative (Negative) Urine Bilirubin Negative (Negative) Urine Urobilinogen Normal mg/dL (Negative) Urine Leukocyte Esterase Negative /uL (Negative) Urine RBC 1 /hpf (0 - 4) Urine WBC None seen /hpf (0 - 5) Urine Squamous Epithelial Cells None seen /hpf (<5) Urine Bacteria None seen /hpf (None Seen) Urine Glucose Normal mg/dL (Normal) Labs and/or images reviewed: Labs reviewed by me, Image(s) reviewed by me Assessment/Plan Assessment/Plan Acute abdominal pain Release of small bowel obstruction, repair of incarcerated abdominal wall hernia by surgeon Dr. Stephen on 08-16-24 Sepsis Secondary to small-bowel obstruction : Zosyn Flagyl Diabetes: Insulin sliding scale Hypertension Hypothyroid History of bariatric sleeve Time Spent 35 minutes Full code NG tube removed, patient is tolerating regular diet abdomen is soft having bowel movement and wants to go home. Surgeon Dr. Stephen cleared the patient for discharge. Plan discussed with: Patient Date of Service: Aug 18, 2024 Billing Provider: DOLORES LANE MD Common Visit Codes: [id number] INP/OBS CARE(HIGH) DOLORES LANE MD Aug 18, 2024 11:06
[2024-08-18] MEDS ORDERED: LEVO500T91 PO (11:07)
[2024-08-18] MEDS ORDERED: ZOFR4T PO (11:07)
[2024-08-18] MEDS ORDERED: METR-344 PO (11:07)
--- NOTE | 2024-08-18 11:10 | DVHDS2 ---
Discharge Summary Date of Admission Aug 15, 2024 at 13:10 Date of Discharge: Aug 18, 2024 Admitting Diagnosis Abdominal pain nausea and vomiting Wounds: Repair of incarcerated abdominal hernia Labs/Diagnostic Data: Laboratory Results Test 08/17/24 06:40 08/16/24 17:26 08/16/24 05:27 08/15/24 20:25 White Blood Count 13.9 10^3/uL (4.4-10.8) Red Blood Count 4.34 10^6/uL (4.0-5.20) Hemoglobin 13.1 g/dL (12.2-16.2) Hematocrit 39.2 % (36.0-46.0) Mean Corpuscular Volume 90.4 fL (80.0-100.0) Mean Corpuscular Hemoglobin 30.3 pg (28.0-32.0) Mean Corpuscular Hemoglobin Concent 33.5 g/dL (32.0-36.0) Red Cell Distribution Width 13.9 % (11.8-14.3) Platelet Count 205 10^3/uL (140-450) Mean Platelet Volume 8.2 fL (6.9-10.8) Neutrophils (%) (Auto) 74.6 % (37.0-80.0) Lymphocytes (%) (Auto) 16.2 % (10.0-50.0) Monocytes (%) (Auto) 8.7 % (0.0-12.0) Eosinophils (%) (Auto) 0.2 % (0.0-7.0) Basophils (%) (Auto) 0.3 % (0.0-2.0) Neutrophils # (Auto) 10.3 10 ^3/uL (1.6-8.6) Lymphocytes # (Auto) 2.2 10 ^3/uL (0.4-5.4) Monocytes # (Auto) 1.2 10 ^3/uL (0-1.3) Eosinophils # (Auto) 0 10 ^3/uL (0-0.8) Basophils # (Auto) 0 10 ^3/uL (0-0.2) Nucleated Red Blood Cells 0.0 % Prothrombin Time 12.5 sec (9.3-11.8) Prothrombin Time INR 1.19 (0.9-1.15) Activated Partial Thromboplast Time 27.0 SEC (24.5-34.5) Sodium Level 146 mmol/L (136-145) Potassium Level 4.7 mmol/L (3.5-5.1) Chloride Level 107 mmol/L (98-107) Carbon Dioxide Level 27 mmol/L (20-31) Anion Gap 12 (5-15) Blood Urea Nitrogen 18 mg/dL (9-23) Creatinine 0.79 mg/dL (0.550-1.02) Glomerular Filtration Rate Calc 85 mL/min (>90) BUN/Creatinine Ratio 22.8 (10.0-20.0) Serum Glucose 139 mg/dL (74-106) Calcium Level 10.4 mg/dL (8.7-10.4) Total Bilirubin 0.6 mg/dL (0.2-1.0) Aspartate Amino Transferase (AST) 45 U/L (13-40) Alanine Aminotransferase (ALT) 28 U/L (7-40) Alkaline Phosphatase 117 U/L (46-116) Total Protein 7.5 g/dL (5.7-8.2) Albumin 4.9 g/dL (3.2-4.8) Urine Color Light-yellow (Yellow) Urine Clarity Ex.turbid (Clear) Urine pH 7.0 (5.0-9.0) Urine Specific [place] 1.019 (1.001-1.035) Urine Protein Trace (Negative) Urine Ketones 2+ (Negative) Urine Blood Negative /uL (Negative) Urine Nitrite Negative (Negative) Urine Bilirubin Negative (Negative) Urine Urobilinogen Normal mg/dL (Negative) Urine Leukocyte Esterase Negative /uL (Negative) Urine RBC 1 /hpf (0 - 4) Urine WBC None seen /hpf (0 - 5) Urine Squamous Epithelial Cells None seen /hpf (<5) Urine Bacteria None seen /hpf (None Seen) Urine Glucose Normal mg/dL (Normal) Other Laboratory Tests 08/17/24 06:40 08/16/24 05:27 Brief Hx & Hospital Course: 64-year-old female with a history of hypertension diabetes hypothyroidism history of bariatric sleeve came in complaining of abdominal pain nausea and vomiting found to have small-bowel obstruction underwent repair of incarcerated abdominal wall hernia by surgeon Dr. Gaxiola on 08/16/2024. Treated with IV antibiotics pain medications and IV fluids. Postop course uneventful. NG tube removed. Vital signs are stable afebrile abdomen is soft having bowel movement and wants to be discharged home cleared for discharge by surgeon. Prescription transmitted to the pharmacy she will follow up with the surgeon in two weeks e Consults/Reason for consult Surgeon Dr. Stephen Operations or Procedures Repair of incarcerated abdominal hernia Condition at Discharge: Fair Final Diagnosis/Problems List Acute abdominal pain Release of small bowel obstruction, repair of incarcerated abdominal wall hernia by surgeon Dr. Stephen on 08-16-24 Sepsis Secondary to small-bowel obstruction : Zosyn Flagyl Diabetes: Insulin sliding scale Hypertension Hypothyroid History of bariatric sleeve Discharge Disposition: Home Discharge Instruct/Medications Diet: Regular Activity: Light activity Follow Up/Referral: Follow up With your primary Dr in one week Follow up with surgeon Dr. Stephen in two weeks Medications: Levaquin Flagyl Zofran Transmitted to the pharmacy 36 (Time taken For discharge summary 39 minutes) Discharge Statement: "Patient was advised to return to the ER or call 911 if any headaches, dizziness, shortness of breath, chest pain, abdominal pain, bleeding, fevers, or worsening of medical condition. Patient was counseled about treatment plan, medications, possible side effects, patientverbalized understanding. All questions were answered to the best of my ability. This discharge took greater then 30 minutes in planning, reviewing documentation, counseling the patient, and discussing with other team members." ASSESSMENT ASSESSMENT Hospital Course Improved Assessment Acute abdominal pain Release of small bowel obstruction, repair of incarcerated abdominal wall hernia by surgeon Dr. Stephen on 08-16-24 Sepsis Secondary to small-bowel obstruction : Zosyn Flagyl Diabetes: Insulin sliding scale Hypertension Hypothyroid History of bariatric sleeve Date of Service: Aug 18, 2024 Billing Provider: DOLROES LANE MD Common Visit Codes: [id number] DISCH DAY >30min DOLORES L[address] MD Aug 18, 2024 11:10
[2024-08-18 12:34] VITALS: BP 117/65; PULSE 76; RESP 17; TEMP 97.8; O2SAT 96
[2024-08-18 13:07] VITALS: BP 105/64; PULSE 77; RESP 17; TEMP 98.4; O2SAT 95
== END 2024-08-18 14:00 | disposition home or self-care (01) | DRG 710 ==
LOC: ER 09:33 → OVERFLOW 13:10 → WEST WING 15:27
PROVIDERS: ADMIT Nurse Practitioner Family; ATTEND Family Medicine
PROC: 0DN80ZZ Release Small Intestine, Open Approach (ICD-10-PCS; 2024-08-16)
PROC: 0WQF0ZZ Repair Abdominal Wall, Open Approach (ICD-10-PCS; principal; 2024-08-16 10:30)
PROC: 0D9670Z Drainage of Stomach with Drainage Device, Via Natural or Artificial Opening (ICD-10-PCS; 2024-08-17)
DX: A41.9 Sepsis, unspecified organism (principal); N17.9 Acute kidney failure, unspecified; K43.0 Incisional hernia with obstruction, without gangrene; E11.9 Type 2 diabetes mellitus without complications; E03.9 Hypothyroidism, unspecified; K42.9 Umbilical hernia without obstruction or gangrene; E86.0 Dehydration; I10 Essential (primary) hypertension; E66.9 Obesity, unspecified; Z68.30 Body mass index [BMI] 30.0-30.9, adult
CPT/HCPCS: 36415; 71045; 74176; 74250; 80048; 80053; 81001; 85025; 85610; 85730; 86850; 86900; 86901; 96365; 96375; G0378; J1100; J2250; J2405; J2470; J2543; J3490